=== PATIENT | male | born 1965 | race Hispanic/Latino ===

== ENCOUNTER 2019-08-06 16:03 | Emergency (ER) | payer OTHER ==
[2019-08-06] MEDS ORDERED: BENZONATATE 100 MG CAPSULE PO ONE (16:47)
== END 2019-08-06 17:42 | disposition home or self-care (01) ==
LOC: EDH 16:03
DX: J11.1 Influenza due to unidentified influenza virus with other respiratory manifestations (principal)
CPT/HCPCS: 71046; 87804

== ENCOUNTER 2019-09-16 12:57 | Emergency (ER) | payer MEDICAID, OTHER ==
[2019-09-16] MEDS ORDERED: ACETAMINOPHEN EXTRA STRENGTH 500 MG TABLET ONE (13:42)
== END 2019-09-16 14:57 | disposition home or self-care (01) ==
LOC: EDH 12:57
DX: J10.1 Influenza due to other identified influenza virus with other respiratory manifestations (principal)
CPT/HCPCS: 87804

== ENCOUNTER 2020-02-09 13:28 | Emergency (ER) | payer MEDICAID, OTHER ==
[2020-02-09] MEDS ORDERED: ACETAMINOPHEN 325 MG TAB ONE (14:24)
== END 2020-02-09 17:12 | disposition home or self-care (01) ==
LOC: EDH 13:28
DX: J06.9 Acute upper respiratory infection, unspecified (principal)

== ENCOUNTER 2021-11-07 16:31 | Emergency (ER) | payer MEDICAID, OTHER ==
[~2021-11-07] VITALS: Ht 167.6 cm; Wt 61.2 kg
[2021-11-07 17:00] LABS: BASOPHILS % (AUTO) 0.3 % (0.0-5.0); EOSINOPHILS % (AUTO) 0.4 % (0.0-8.0); HEMATOCRIT 46.1 % (42-54); LYMPHOCYTES % (AUTO) 6.9 % (21.0-51.0); MEAN CORPUSCULAR HEMOGLOBIN 30.8 pg (27.0-33.0); MEAN CORPUSCULAR HGB CONC 33.8 g/dL (32.0-36.0); MEAN CORPUSCULAR VOLUME 91.1 fL (79-99); MONOCYTES % (AUTO) 5.3 % (3.0-13.0); NEUTROPHILS % (AUTO) 86.8 % (40.0-77.0); PLATELET COUNT (AUTO) 222 K/uL (130-400); RED BLOOD CELL COUNT(AUTO) 5.06 MIL/uL (4.50-6.20); RED CELL DISTRIBUTION WIDTH 12.9 % (11.0-15.5); WHITE BLOOD COUNT (AUTO) 10.6 K/uL (4.8-10.8)
[2021-11-07] MEDS ORDERED: 0.9%NACL 1000ML 1,000 ML IV ONE (17:00)
[2021-11-07 17:10] LABS: POTASSIUM 4.2 mmol/L (3.5-5.1)
[2021-11-07 17:14] LABS: ALBUMIN 4.4 g/dL (3.5-5.0); BILIRUBIN,TOTAL 3.1 mg/dL (0.2-1.0); TOTAL PROTEIN, SERUM 8.3 g/dL (6.0-8.3)
[2021-11-07] MEDS ORDERED: FAMOTIDINE 20MG VIAL IV ONE ×2 (18:30→19:46)
[2021-11-07] MEDS ORDERED: ONDANSETRON 4MG INJ IVP ONE (18:30)
[2021-11-07] MEDS ORDERED: ONDANSETRON 4MG INJ ONE (19:46)
[2021-11-07 19:59] LABS: APPEARANCE,URINE Clear (CLEAR); BILIRUBIN,URINE Small (NEGATIVE); COLOR,URINE Dark Yellow (YELLOW); GLUCOSE, URINE (UA) Negative (NEGATIVE); KETONES,URINE 40 mg/dL (NEGATIVE); LEUKOCYTE ESTERASE ,URINE Negative (NEGATIVE); NITRATE,URINE Negative (NEGATIVE); OCCULT BLOOD,URINE Negative (NEGATIVE); PH,URINE 5.5 (5.0-8.0); PROTEIN,URINE Trace mg/dL (NEGATIVE)
[2021-11-07 20:09] LABS: BACTERIA,URINE Rare /HPF (None Seen); RBC,URINE 0-1 /HPF (0-1); SQUAMOUS EPITHELIAL CELL,UR Rare /HPF (0-2); WBC,URINE 0-1 /HPF (0-1)
[2021-11-07] MEDS ORDERED: FAMO-136 PO (20:38)
[2021-11-07] MEDS ORDERED: ONDA4TAB10 PO (20:38)
[2021-11-07 20:43] VITALS: BP 126/75
== END 2021-11-07 21:09 | disposition home or self-care (01) ==
LOC: EDH 16:31
DX: B34.9 Viral infection, unspecified (principal); R11.2 Nausea with vomiting, unspecified
CPT/HCPCS: 36415; 80053; 81001; 83690; 85025; 96361; 96374; 96375; 99284; J2405; J3490

== ENCOUNTER 2022-05-24 18:25 | Emergency (ER) | payer MEDICAID, OTHER ==
[~2022-05-24] VITALS: Ht 167.6 cm; Wt 61.2 kg
[~2022-05-24 18:25] MED LIST: FAMO-136 PO; ONDA4TAB10 PO
[2022-05-24] MEDS ORDERED: FEXO180T94 PO (20:45)
[2022-05-24 20:55] VITALS: BP 128/71
[2022-05-24] MEDS ORDERED: DIPHENHYDRAMINE HCL 25 MG CAPSULE PO ONE (21:00)
== END 2022-05-24 21:01 | disposition home or self-care (01) ==
LOC: EDH 18:25
DX: T78.49XA Other allergy, initial encounter (principal); Z20.822 Contact with and (suspected) exposure to COVID-19; X58.XXXA Exposure to other specified factors, initial encounter
CPT/HCPCS: 99283; 87880; 87804 ×2; Q0163

== ENCOUNTER 2022-07-13 11:02 | Emergency (ER) | payer MEDICAID, OTHER ==
[~2022-07-13] VITALS: Ht 167.6 cm; Wt 63.5 kg
[~2022-07-13 11:02] MED LIST changes: +FEXO180T94 PO
[2022-07-13] MEDS ORDERED: 0.9% NACL 500ML IV.SOLN 500 ML IV ONE (11:30)
[2022-07-13] MEDS ORDERED: KETOROLAC 15MG/ML VIAL (15MG/ML) IV SCH (11:30)
[2022-07-13 11:31] LABS: BASOPHILS % (AUTO) 0.8 % (0.0-5.0); EOSINOPHILS % (AUTO) 3.5 % (0.0-8.0); HEMATOCRIT 47.5 % (42-54); MEAN CORPUSCULAR HEMOGLOBIN 31.2 pg (27.0-33.0); MEAN CORPUSCULAR HGB CONC 34.5 g/dL (32.0-36.0); MEAN CORPUSCULAR VOLUME 90.3 fL (79-99); MONOCYTES % (AUTO) 9.1 % (3.0-13.0); NEUTROPHILS % (AUTO) 54.4 % (40.0-77.0); PLATELET COUNT (AUTO) 258 K/uL (130-400); RED BLOOD CELL COUNT(AUTO) 5.26 MIL/uL (4.50-6.20); WHITE BLOOD COUNT (AUTO) 8.3 K/uL (4.8-10.8)
[2022-07-13 11:36] LABS: APPEARANCE,URINE CLEAR (CLEAR); BILIRUBIN,URINE NEGATIVE (NEGATIVE); COLOR,URINE YELLOW (YELLOW); GLUCOSE, URINE (UA) NEGATIVE (NEGATIVE); KETONES,URINE NEGATIVE (NEGATIVE); LEUKOCYTE ESTERASE ,URINE NEGATIVE Leu/uL (NEGATIVE); NITRATE,URINE NEGATIVE (NEGATIVE); OCCULT BLOOD,URINE NEGATIVE (NEGATIVE); PROTEIN,URINE NEGATIVE (NEGATIVE); UROBILINOGEN,URINE 0.2 mg/dL (0.2-1.0)
[2022-07-13 11:43] LABS: ALBUMIN 4.5 g/dL (3.5-5.0); POTASSIUM 3.5 mmol/L (3.5-5.1); TOTAL PROTEIN, SERUM 9.1 g/dL (6.0-8.3)
[2022-07-13] MEDS ORDERED: KETOROLAC 15MG/ML VIAL (15MG/ML) ONE (11:50)
[2022-07-13 12:21] VITALS: BP 159/47
[2022-07-13] MEDS ORDERED: POLY17PO4 PO (12:34)
[2022-07-13] MEDS ORDERED: DOCU-116 PO (12:34)
== END 2022-07-13 12:55 | disposition home or self-care (01) ==
LOC: EDH 11:02
DX: K59.00 Constipation, unspecified (principal); Z79.899 Other long term (current) drug therapy
CPT/HCPCS: 99284; 74176; 96374; 80053; 85025; 81003; 36415; J7040; J1885

== ENCOUNTER 2022-07-22 02:15 | Emergency (ER) | payer MEDICAID, OTHER ==
[~2022-07-22] VITALS: Ht 167.6 cm; Wt 65.8 kg
[~2022-07-22 02:15] MED LIST changes: +DOCU-116 PO; +POLY17PO4 PO
[2022-07-22 04:09] LABS: BASOPHILS % (AUTO) 0.4 % (0.0-5.0); EOSINOPHILS % (AUTO) 1.1 % (0.0-8.0); HEMATOCRIT 43.6 % (42-54); LYMPHOCYTES % (AUTO) 22.3 % (21.0-51.0); MEAN CORPUSCULAR HEMOGLOBIN 31.2 pg (27.0-33.0); MEAN CORPUSCULAR HGB CONC 34.9 g/dL (32.0-36.0); MEAN CORPUSCULAR VOLUME 89.5 fL (79-99); MONOCYTES % (AUTO) 8.1 % (3.0-13.0); NEUTROPHILS % (AUTO) 67.9 % (40.0-77.0); PLATELET COUNT (AUTO) 227 K/uL (130-400); RED BLOOD CELL COUNT(AUTO) 4.87 MIL/uL (4.50-6.20); RED CELL DISTRIBUTION WIDTH 12.7 % (11.0-15.5); WHITE BLOOD COUNT (AUTO) 8.2 K/uL (4.8-10.8)
[2022-07-22 04:20] LABS: APPEARANCE,URINE CLEAR (CLEAR); BILIRUBIN,URINE NEGATIVE (NEGATIVE); COLOR,URINE YELLOW (YELLOW); GLUCOSE, URINE (UA) NEGATIVE (NEGATIVE); KETONES,URINE 10 mg/dL (NEGATIVE); LEUKOCYTE ESTERASE ,URINE NEGATIVE Leu/uL (NEGATIVE); NITRATE,URINE NEGATIVE (NEGATIVE); OCCULT BLOOD,URINE NEGATIVE (NEGATIVE); PH,URINE 5.5 (5.0-8.0); PROTEIN,URINE 30 mg/dL (NEGATIVE); UROBILINOGEN,URINE 0.2 mg/dL (0.2-1.0)
[2022-07-22 04:22] LABS: CREATININE 0.9 mg/dL (0.5-1.5); POTASSIUM 3.3 mmol/L (3.5-5.1)
[2022-07-22 04:26] LABS: ALBUMIN 4.1 g/dL (3.5-5.0); TOTAL PROTEIN, SERUM 8.1 g/dL (6.0-8.3)
[2022-07-22] MEDS ORDERED: 0.9%NACL 1000ML 2,000 ML IV ONE (04:30)
[2022-07-22] MEDS ORDERED: ONDANSETRON 4MG INJ IVP ONE (04:30)
[2022-07-22] MEDS ORDERED: DIPHENOXYLATE HCL/ATROPINE 2.5/0.025 MG TAB PO ONE (04:30)
[2022-07-22] MEDS ORDERED: ONDANSETRON 4MG INJ ONE (04:39)
[2022-07-22] MEDS ORDERED: ONDA-104 PO (05:13)
[2022-07-22] MEDS ORDERED: OMEP40CA21 PO (05:13)
[2022-07-22] MEDS ORDERED: DIPH1TAB PO (05:13)
[2022-07-22 05:22] VITALS: BP 105/65
== END 2022-07-22 05:35 | disposition home or self-care (01) ==
LOC: EDH 02:15
DX: A08.4 Viral intestinal infection, unspecified (principal); Z20.822 Contact with and (suspected) exposure to COVID-19; Z79.899 Other long term (current) drug therapy
CPT/HCPCS: 99283; 96374; 87635; 80053; 83690; 85025; 87804 ×2; 81003; 36415; C9803; J7030; J2405